=== PATIENT | female | born 1990 | race Caucasian/White ===

== ENCOUNTER 2022-12-07 13:03 | Observation (INO) | payer BC ==
[~2022-12-07] VITALS: Ht 152.4 cm; Wt 54.0 kg
== END 2022-12-07 15:50 | disposition home or self-care (01) ==
LOC: SPU 13:03
PROVIDERS: ADMIT Obstetrics & Gynecology; ATTEND Obstetrics & Gynecology
DX: O42.92 Full-term premature rupture of membranes, unspecified as to length of time between rupture and onset of labor (principal); Z3A.37 37 weeks gestation of pregnancy
CPT/HCPCS: 76815; G0378; 81002

== ENCOUNTER 2022-12-14 01:57 | Observation (INO) | payer BC ==
[~2022-12-14] VITALS: Ht 152.4 cm; Wt 54.4 kg
== END 2022-12-14 04:35 | disposition home or self-care (01) ==
LOC: SPU 01:57
PROVIDERS: ADMIT Obstetrics & Gynecology; ATTEND Obstetrics & Gynecology
DX: O62.9 Abnormality of forces of labor, unspecified (principal); Z3A.38 38 weeks gestation of pregnancy
CPT/HCPCS: 81002; G0379; G0378

== ENCOUNTER 2022-12-17 23:45 | Inpatient (IN) | payer BC ==
[~2022-12-17] VITALS: Ht 152.4 cm; Wt 54.9 kg
[2022-12-18] MEDS ORDERED: TERBUTALINE SULFATE 1 MG/ML VIAL SUBCUT ONE ×2 (00:30→13:30)
[2022-12-18] MEDS ORDERED: LR 1,000 ML IV ONE (00:30)
[2022-12-18] MEDS ORDERED: NALBUPHINE HCL 10 MG/ML AMP IVP PRN ×2 (00:30→20:15)
[2022-12-18] MEDS ORDERED: AMPICILLIN SODIUM 2 GM in NS 100 ML IV ONE (00:30)
[2022-12-18] MEDS ORDERED: NALBUPHINE HCL 10 MG/ML AMP IM PRN (00:30)
[2022-12-18] MEDS ORDERED: AMPICILLIN SODIUM 2 GM VIAL ONE ×2 (00:57→19:02)
[2022-12-18 01:12] LABS: BASOPHILS # (AUTO) 0.2 K/uL (0.0-0.2); BASOPHILS % (AUTO) 1.5 % (0.0-2.0); EOSINOPHILS # (AUTO) 0.1 K/uL (0.0-0.4); EOSINOPHILS % (AUTO) 0.7 % (0.0-4.0); HEMATOCRIT 39.4 % (36-48); HEMOGLOBIN 13.1 g/dL (12.0-16.0); LYMPHOCYTES # (AUTO) 2.5 K/uL (1.0-5.5); LYMPHOCYTES % (AUTO) 18.6 % (20.5-51.5); MEAN CORPUSCULAR HEMOGLOBIN 32 pg (27-31); MEAN CORPUSCULAR HGB CONC 33 % (32-36); MEAN CORPUSCULAR VOLUME 95 fL (79.0-98.0); MONOCYTES # (AUTO) 1.1 K/uL (0.0-1.0); MONOCYTES % (AUTO) 8.3 % (1.7-9.3); NEUTROPHILS # (AUTO) 9.7 K/uL (1.8-7.7); NEUTROPHILS % (AUTO) 70.9 % (40.0-70.0); PLATELET COUNT (AUTO) 227 K/uL (130-430); RED BLOOD CELL COUNT(AUTO) 4.13 MIL/uL (4.2-6.2); RED CELL DISTRIBUTION WIDTH 13.4 % (9.0-15.0); WHITE BLOOD COUNT (AUTO) 13.6 K/uL (4.8-10.8)
[2022-12-18] MEDS ORDERED: ROPIVACAINE HCL/PF 0.2% 200 ML ONE ×2 (01:38→16:46)
[2022-12-18] MEDS ORDERED: fentaNYL CITRATE/PF 100 MCG/2 ML AMP ONE ×2 (01:38→16:46)
[2022-12-18] MEDS: LR 1,000 ML IV SCH ×3 (02:03→14:39)
[2022-12-18] MEDS ORDERED: LR 500 ML IV ONE (02:15)
[2022-12-18] MEDS ORDERED: FENT2mCg/mL-ROPIVA0.2%/NS EPID 200 ML EP SCH (02:15)
[2022-12-18 03:29] VITALS: BP_SYST 114
[2022-12-18] MEDS ORDERED: AMPICILLIN SODIUM 1 GM VIAL ONE (03:58)
[2022-12-18] MEDS ORDERED: AMPICILLIN SODIUM 1 GM in NS 50 ML IV SCH (04:30)
[2022-12-18] MEDS ORDERED: NALOXONE HCL 0.4 MG/ML AMP (NARCAN) ONE (09:28)
[2022-12-18] MEDS ORDERED: LIDOCAINE PF 1% 30ML(POUR BTL) INJ ONE (09:28)
[2022-12-18] MEDS ORDERED: LIGHT MINERAL OIL 10 ML VIAL MC ONE (09:28)
[2022-12-18] MEDS: OXYTOCIN/0.9 % SODIUM CHLORIDE 1,000 ML IV SCH ×2 (12:15→23:46)
[2022-12-18] MEDS ORDERED: TERBUTALINE SULFATE 1 MG/ML VIAL ONE (12:58)
[2022-12-18] MEDS ORDERED: BUPIVACAINE /PF 0.5% 30 ML VIAL ONE ×2 (19:29→20:30)
[2022-12-18] MEDS ORDERED: OXYTOCIN 10 UNIT/ML VIAL ONE (19:45)
[2022-12-18] MEDS ORDERED: ONDANSETRON HCL 4 MG/2 ML VIAL IVP PRN ×2 (20:15)
[2022-12-18] MEDS ORDERED: DIPHENHYDRAMINE INJ 50 MG/ML VIAL IVP PRN (20:15)
[2022-12-18] MEDS ORDERED: NALOXONE HCL 0.4 MG/ML AMP (NARCAN) IVP PRN ×2 (20:15)
[2022-12-18] MEDS ORDERED: fentaNYL CITRATE/PF 100 MCG/2 ML AMP IVP PRN ×2 (20:15)
[2022-12-18] MEDS ORDERED: MORPHINE SULFATE 10MG/10ML PF AMP EP SCH (20:15)
[2022-12-18] MEDS ORDERED: KETOROLAC TROMETHAMINE 60 MG/2 ML VIAL IM PRN (20:15)
[2022-12-18] MEDS ORDERED: ONDANSETRON HCL 4 MG/2 ML VIAL ONE (20:30)
[2022-12-18] MEDS ORDERED: NS IRRIG SOLN 1000 ML IR ONE (20:30)
[2022-12-18] MEDS ORDERED: MORPHINE SULFATE 10MG/10ML PF AMP ONE (20:30)
[2022-12-18] MEDS ORDERED: LR 1,000 ML IV.SOLN IV ONE (20:30)
[2022-12-18] MEDS ORDERED: KETOROLAC TROMETHAMINE 30 MG VIAL ONE (20:59)
[2022-12-18 21:53] VITALS: BP_SYST 131
[2022-12-19] MEDS ORDERED: MEASLES,MUMPS&RUBELLA VACC/PF 12500 UNIT/0.5 ML VIAL SUBQ PRN (08:15)
[2022-12-19] MEDS ORDERED: HYDROcodone/ACETAMIN 5-325 MG TAB (NORCO/ VICODIN) PO PRN (08:15)
[2022-12-19] MEDS ORDERED: LR 1,000 ML IV SCH (08:15)
[2022-12-19] MEDS ORDERED: RHO(D) IMMUNE GLOBULIN/MALTOSE 1500 UNITS/1.3 ML (WINHRO) IM PRN (08:15)
[2022-12-19] MEDS ORDERED: DIPHTH,PERTUSS(ACELL),TET VAC 0.5 ML VIAL (Tdap) I.M. PRN (08:15)
[2022-12-19] MEDS ORDERED: OXYCODONE/ACETAMINOPHEN 5-325 TABLET PO PRN ×2 (08:15)
[2022-12-19] MEDS ORDERED: OXYTOCIN/0.9 % SODIUM CHLORIDE 1,000 ML IV ONE (08:15)
[2022-12-19] MEDS ORDERED: LANOLIN 7 GM OINT. TP PRN (08:15)
[2022-12-19] MEDS ORDERED: BISACODYL 10 MG/SUPPOSITORY RC PRN (08:15)
[2022-12-19] MEDS: OXYTOCIN/0.9 % SODIUM CHLORIDE 1,000 ML IV SCH (08:59)
[2022-12-19] MEDS: DOCUSATE SODIUM 100 MG CAPSULE PO SCH (09:04)
[2022-12-19] MEDS: SIMETHICONE 80 MG TAB.CHEW PO PRN ×2 (09:05→12:57)
[2022-12-19] MEDS: IBUPROFEN 600 MG TABLET PO SCH ×2 (12:57→18:01)
[2022-12-19] MEDS ORDERED: DIPHENHYDRAMINE INJ 50 MG/ML VIAL IM PRN (20:45)
[2022-12-19] MEDS: HYDROCORTISONE 1%, 28.35 GM TOPICAL CREAM TP PRN (20:45)
[2022-12-20] MEDS: DOCUSATE SODIUM 100 MG CAPSULE PO SCH ×2 (00:38→20:24)
[2022-12-20] MEDS: SIMETHICONE 80 MG TAB.CHEW PO PRN ×3 (00:39→20:24)
[2022-12-20] MEDS: IBUPROFEN 600 MG TABLET PO SCH ×4 (00:39→18:02)
[2022-12-20 07:53] LABS: BASOPHILS % (AUTO) 0.2 % (0.0-2.0); EOSINOPHILS # (AUTO) 0.1 K/uL (0.0-0.4); EOSINOPHILS % (AUTO) 0.6 % (0.0-4.0); HEMATOCRIT 33.8 % (36-48); HEMOGLOBIN 11.1 g/dL (12.0-16.0); LYMPHOCYTES # (AUTO) 1.6 K/uL (1.0-5.5); LYMPHOCYTES % (AUTO) 10.3 % (20.5-51.5); MEAN CORPUSCULAR HEMOGLOBIN 32 pg (27-31); MEAN CORPUSCULAR HGB CONC 33 % (32-36); MEAN CORPUSCULAR VOLUME 97 fL (79.0-98.0); MONOCYTES # (AUTO) 0.6 K/uL (0.0-1.0); NEUTROPHILS # (AUTO) 13.3 K/uL (1.8-7.7); NEUTROPHILS % (AUTO) 84.9 % (40.0-70.0); PLATELET COUNT (AUTO) 192 K/uL (130-430); RED BLOOD CELL COUNT(AUTO) 3.48 MIL/uL (4.2-6.2); RED CELL DISTRIBUTION WIDTH 13.9 % (9.0-15.0); WHITE BLOOD COUNT (AUTO) 15.7 K/uL (4.8-10.8)
[2022-12-20] MEDS: HYDROCORTISONE 1%, 28.35 GM TOPICAL CREAM TP PRN (16:58)
[2022-12-21] MEDS: IBUPROFEN 600 MG TABLET PO SCH ×2 (00:03→06:34)
[2022-12-21] MEDS: DOCUSATE SODIUM 100 MG CAPSULE PO SCH (09:05)
[2022-12-21] MEDS: SIMETHICONE 80 MG TAB.CHEW PO PRN (09:05)
== END 2022-12-21 13:14 | disposition home or self-care (01) | DRG 788 ==
LOC: SPU 23:45 → OBSVTOIN 12-18 00:20 → SPU 12-18 21:00
PROVIDERS: ADMIT Obstetrics & Gynecology; ATTEND Obstetrics & Gynecology
PROC: 10D00Z1 Extraction of Products of Conception, Low, Open Approach (ICD-10-PCS; principal; 2022-12-19)
DX: O76 Abnormality in fetal heart rate and rhythm complicating labor and delivery (principal); O62.1 Secondary uterine inertia; Z20.822 Contact with and (suspected) exposure to COVID-19; Z37.0 Single live birth; Z3A.38 38 weeks gestation of pregnancy
CPT/HCPCS: 36415; 74018; 81002; 85025; 86592; 86886; 86900; 86901; 87536; 94760; G0378; J0290; J1200; J1885; J2001; J2274; J2300; J2310; J2405; J2590; J3010; J3105; J3490; J7120